=== PATIENT | male | born 1955 | race Caucasian/White ===

== ENCOUNTER 2019-12-17 09:17 | Inpatient (IN) | payer MEDICARE, MEDICAID ==
[~2019-12-17] VITALS: Ht 172.7 cm; Wt 136.4 kg
[2019-12-17] MEDS ORDERED: VANCOMYCIN HCL 1 GM/D5% WATER 200 ML IV ONE (09:45)
[2019-12-17 12:25] LABS: BASOPHILS % (AUTO) 0.6 % (0.0-2.0); EOSINOPHILS % (AUTO) 1.3 % (1.0-6.0); HEMATOCRIT 45.4 % (41-53); LYMPHOCYTES # (AUTO) 0.8 K/uL (1.0-4.8); LYMPHOCYTES % (AUTO) 9.3 % (22.0-44.0); MEAN CORPUSCULAR HEMOGLOBIN 30.2 pg (26.0-34.0); MEAN CORPUSCULAR HGB CONC 33.2 G/dL (31.0-37.0); MEAN CORPUSCULAR VOLUME 91 fL (80-100); MONOCYTES # (AUTO) 0.7 K/uL (0.1-1.0); MONOCYTES % (AUTO) 8.7 % (2.0-9.0); NEUTROPHILS # (AUTO) 6.8 K/uL (1.8-7.7); NEUTROPHILS % (AUTO) 80.1 % (40.0-70.0); PLATELET COUNT (AUTO) 217 K/uL (150-450); RED BLOOD CELL COUNT(AUTO) 4.99 MIL/uL (4.50-5.90); RED CELL DISTRIBUTION WIDTH 14.6 % (11.5-14.5)
[2019-12-17 12:51] LABS: BILIRUBIN,TOTAL 1.3 mg/dL (0.1-1.0); CALCIUM, TOTAL 8.8 mg/dL (8.8-10.5); CREATININE 1.76 mg/dL (0.60-1.30)
[2019-12-17 12:52] LABS: ALBUMIN 2.9 g/dL (3.4-5.0); TOTAL PROTEIN, SERUM 7.2 g/dL (6.4-8.2)
[2019-12-17 12:55] LABS: LACTIC ACID 1.7 mmol/L (0.4-2.0)
[2019-12-17 12:58] LABS: POTASSIUM 2.8 mmol/L (3.5-5.1)
[2019-12-17] MEDS ORDERED: POTASSIUM CHLORIDE 20 MEQ ER TABLET PO ONE (13:15)
[2019-12-17] MEDS ORDERED: 0.9% SODIUM CHLORIDE 10 ML SYRINGE IVP PRN (14:00)
[2019-12-17] MEDS ORDERED: ONDANSETRON HCL 4 MG/2 ML VIAL IVP PRN (14:00)
[2019-12-17] MEDS ORDERED: ACETAMINOPHEN 325 MG TABLET PO PRN ×2 (14:00→14:15)
[2019-12-17 14:02] VITALS: BP 115/83
[2019-12-17] MEDS ORDERED: ALBUTEROL SULFATE 2.5 MG/0.5 ML NEB SOLUTION NEB PRN (14:15)
[2019-12-17] MEDS ORDERED: SODIUM CHLORIDE 0.9% 1,000 ML IV ONE (14:15)
[2019-12-17] MEDS ORDERED: BISACODYL 10 MG RECTAL RECTAL SUPPOSITORY PR PRN (14:15)
[2019-12-17] MEDS ORDERED: VANCOMYCIN HCL 1.5 GM in DEXTROSE 5%-WATER 250 ML IV ONE (15:00)
[2019-12-17] MEDS: HEPARIN SODIUM,PORCINE 5,000 UNITS/ML VIAL SQ SCH ×2 (15:01→22:47)
[2019-12-17 16:03] VITALS: BP 123/75
[2019-12-17 19:37] VITALS: BP 118/78
[2019-12-17] MEDS: DOCUSATE SODIUM 100 MG CAPSULE PO SCH (20:04)
[2019-12-17 21:54] LABS: AMPHET/METH SCREEN,URINE POSITIVE (NEGATIVE); BARBITURATE SCREEN, URINE NEGATIVE (NEGATIVE); BENZODIAZEPINES SCREEN,URINE NEGATIVE (NEGATIVE); CANNABINOID SCREEN,URINE NEGATIVE (NEGATIVE); COCAINE SCREEN,URINE NEGATIVE (NEGATIVE); METHADONE SCREEN, URINE NEGATIVE (NEGATIVE); OPIATE SCREEN,URINE NEGATIVE (NEGATIVE)
[2019-12-17 22:00] LABS: PHENCYCLIDINE SCREEN,URINE NEGATIVE (NEGATIVE)
[2019-12-17] MEDS: OxyCODONE HCL/ACETAMINOPHEN 5-325 MG TABLET PO PRN (22:48)
[2019-12-17] MEDS ORDERED: POTASSIUM CHL 10 MEQ/WATER 50 ML IV PRN (23:00)
[2019-12-17] MEDS ORDERED: POTASSIUM CHLORIDE 20 MEQ ER TABLET PO PRN (23:00)
[2019-12-17 23:46] VITALS: BP 120/84
[2019-12-18 04:22] VITALS: BP 138/95
[2019-12-18] MEDS: OxyCODONE HCL/ACETAMINOPHEN 5-325 MG TABLET PO PRN ×2 (04:22→20:33)
[2019-12-18 06:01] LABS: CALCIUM, TOTAL 8.8 mg/dL (8.8-10.5); CREATININE 1.36 mg/dL (0.60-1.30); POTASSIUM 3.5 mmol/L (3.5-5.1)
[2019-12-18] MEDS ORDERED: VANCOMYCIN HCL 750 MG in DEXTROSE 5%-WATER 250 ML IV SCH (08:00)
[2019-12-18 08:03] VITALS: BP 124/91
[2019-12-18] MEDS: FAMOTIDINE 20 MG TABLET PO SCH (08:18)
[2019-12-18] MEDS: ASPIRIN 81 MG CHEWABLE TABLET PO SCH (08:18)
[2019-12-18] MEDS: HEPARIN SODIUM,PORCINE 5,000 UNITS/ML VIAL SQ SCH ×2 (08:18→16:37)
[2019-12-18] MEDS: MULTIVITAMINS WITH MINERALS, THERAPEUTIC TABLET PO SCH (08:18)
[2019-12-18] MEDS: DOCUSATE SODIUM 100 MG CAPSULE PO SCH ×2 (08:18→20:03)
[2019-12-18 11:53] VITALS: BP 132/98
[2019-12-18 16:09] VITALS: BP 149/86
[2019-12-18 19:20] VITALS: BP 128/79
[2019-12-18] MEDS: VANCOMYCIN HCL 1.25 GM in DEXTROSE 5%-WATER 250 ML IV SCH (20:03)
[2019-12-18 23:16] VITALS: BP 130/74
[2019-12-19] MEDS: HEPARIN SODIUM,PORCINE 5,000 UNITS/ML VIAL SQ SCH ×3 (00:44→15:14)
[2019-12-19 04:50] VITALS: BP 130/81
[2019-12-19] MEDS: MULTIVITAMINS WITH MINERALS, THERAPEUTIC TABLET PO SCH (07:54)
[2019-12-19] MEDS: FAMOTIDINE 20 MG TABLET PO SCH (07:54)
[2019-12-19] MEDS: ASPIRIN 81 MG CHEWABLE TABLET PO SCH (07:54)
[2019-12-19] MEDS: THIAMINE HCL 100 MG TABLET PO SCH (07:54)
[2019-12-19] MEDS: VANCOMYCIN HCL 1.25 GM in DEXTROSE 5%-WATER 250 ML IV SCH (07:54)
[2019-12-19] MEDS: DOCUSATE SODIUM 100 MG CAPSULE PO SCH ×2 (07:54→20:43)
[2019-12-19 08:01] LABS: CALCIUM, TOTAL 8.5 mg/dL (8.8-10.5); CREATININE 1.34 mg/dL (0.60-1.30); MAGNESIUM 1.4 mg/dL (1.80-2.40); PHOSPHORUS 2.9 mg/dL (2.5-4.9); POTASSIUM 3.6 mmol/L (3.5-5.1)
[2019-12-19 08:42] VITALS: BP 151/111
[2019-12-19] MEDS ORDERED: CLIN300C3 PO (09:52)
[2019-12-19] MEDS ORDERED: MULT-1133 PO (09:53)
[2019-12-19] MEDS ORDERED: MAGNESIUM OXIDE 400 MG TABLET PO ONE (10:00)
[2019-12-19 11:29] VITALS: BP 145/94
[2019-12-19] MEDS: OxyCODONE HCL/ACETAMINOPHEN 5-325 MG TABLET PO PRN ×2 (11:35→20:43)
[2019-12-19 15:36] VITALS: BP 139/107
[2019-12-19 20:00] VITALS: BP 147/75
[2019-12-20] VITALS (7 sets, daily range): BP systolic 134–188; BP diastolic 77–114
[2019-12-20] MEDS: VANCOMYCIN HCL 1.25 GM in DEXTROSE 5%-WATER 250 ML IV SCH ×2 (00:46→09:38)
[2019-12-20] MEDS: HEPARIN SODIUM,PORCINE 5,000 UNITS/ML VIAL SQ SCH ×2 (00:46→09:39)
[2019-12-20 07:45] LABS: CALCIUM, TOTAL 8.9 mg/dL (8.8-10.5); CREATININE 1.38 mg/dL (0.60-1.30); POTASSIUM 3.9 mmol/L (3.5-5.1); VANCOMYCIN,RANDOM 23.6 mcg/mL (25.0-50.0)
[2019-12-20] MEDS: THIAMINE HCL 100 MG TABLET PO SCH (09:38)
[2019-12-20] MEDS: ASPIRIN 81 MG CHEWABLE TABLET PO SCH (09:38)
[2019-12-20] MEDS: FAMOTIDINE 20 MG TABLET PO SCH (09:38)
[2019-12-20] MEDS: DOCUSATE SODIUM 100 MG CAPSULE PO SCH (09:39)
[2019-12-20] MEDS: MULTIVITAMINS WITH MINERALS, THERAPEUTIC TABLET PO SCH (09:39)
[2019-12-20] MEDS: OxyCODONE HCL/ACETAMINOPHEN 5-325 MG TABLET PO PRN (11:10)
[2019-12-20] MEDS ORDERED: AmLODIPine BESYLATE 10 MG TABLET PO SCH (12:15)
[2019-12-20] MEDS ORDERED: CloNIDine HCL 0.1 MG TABLET PO PRN (12:15)
[2019-12-20 13:12] LABS: MAGNESIUM 1.5 mg/dL (1.80-2.40)
== END 2019-12-20 15:56 | disposition home or self-care (01) | DRG 603 ==
LOC: EMS 09:20 → UNMERGE 13:32 → MERGE 13:32 → 4E 13:32
PROVIDERS: ADMIT Internal Medicine; ATTEND Internal Medicine
DX: L03.116 Cellulitis of left lower limb (principal); N17.9 Acute kidney failure, unspecified; Z68.42 Body mass index [BMI] 45.0-49.9, adult; E44.0 Moderate protein-calorie malnutrition; L03.115 Cellulitis of right lower limb; I34.0 Nonrheumatic mitral (valve) insufficiency; I10 Essential (primary) hypertension; E87.6 Hypokalemia; F15.90 Other stimulant use, unspecified, uncomplicated; E66.01 Morbid (severe) obesity due to excess calories; Z91.19 Patient's noncompliance with other medical treatment and regimen; Z59.0 Homelessness
CPT/HCPCS: 80307; 83605; 83735; 84100; 84132; 87040; 93306; 93970; G0378; G0480; J1644; J3370; J7030; J7060